=== PATIENT | female | born 1975 | race Caucasian/White ===

== ENCOUNTER 2016-05-27 14:27 | Emergency (ER) | payer SELFPAY ==
--- NOTE | 2016-05-27 15:22 | RAD ---
INDICATION: LEFT wrist pain and forearm pain post fall. COMPARISON: November 30, 2003 radiographs. TECHNIQUE: AP, lateral, and oblique views LEFT wrist. AP and lateral views LEFT forearm. REPORT: Transverse fracture through the distal metaphysis of the radius with approximate one half bone width dorsal displacement and dorsal impaction with resulting mild dorsal tilt of the distal radioarticular surface. Negative for associated fracture of the ulna. The carpus remains aligned with the distal radioarticular surface. Negative for additional more proximal fracture of the radius or ulna. Soft tissue swelling about the distal forearm and wrist most prominent along the volar and radial aspects. Negative for subcutaneous emphysema. IMPRESSION: Dorsally displaced and impacted distal metaphyseal fracture of the radius with resulting loss of the normal volar tilt of the distal radioarticular surface.
[2016-05-27] MEDS ORDERED: oxyCODONE/Acetamin 5/325 MG* TAB PO ONE ×2 (15:31→15:53)
--- NOTE | 2016-05-27 15:31 | ED ---
Upper Extremity Pain - HPI Summary HPI Summary: 40 female presents with complaints of left wrist pain that began just [employer] after experiencing a fall while at work. Patient states she was cleaning a bathroom and the floor was wet causing her to slip while she was walking and fell onto her left side, FOOSH injury. Patient denies pain in left elbow, shoulder and fingers. Denies hitting her head and no LOC. Sensation and skin intact. Full ROM at elbow and shoulder. Pain is sharp, aching and radiates up her left forearm. Denies any PMHx. Has not taken any medication for this injury however she is prescribed to take 20mg oxycotton and 10mg percocet daily for a pinched nerve. - History of Current Complaint Chief Complaint: EDExtremityUpper Stated Complaint: POSSIBLE BROKEN WRIST Time Seen by Provider: 05/27/16 14:45 Hx Obtained From: Patient Hx Last Menstrual Period: 3 WEEKS AGO Mechanism Of Injury: Fall From A Standing Position Onset/Duration: Started Hours Ago, Traumatic, Worse Since Timing: Constant Severity Initially: Moderate Severity Currently: Severe Pain Location: Forearm - LEFT, Wrist Character: Sharp, Aching Aggravating Factor(s): Movement, Lifting, Flexion, Extension, Internal/External Rotation Alleviating Factor(s): Nothing, Rest, Ice Associated Signs & Symptoms: Positive: Swelling, Redness. Negative: Numbness/ Tingling Related History: Dominant Hand Left - Allergies/Home Medications Allergies/Adverse Reactions: Allergies Allergy/AdvReac Type Severity Reaction Status Date / Time Daptomycin Allergy Severe Hives Verified 06/22/15 15:26 Gabapentin Allergy Severe RESPIRATORY Verified 06/22/15 15:26 ILLNESS Prednisone Allergy Severe THROAT Verified 06/22/15 15:30 SWELLING Cephalexin Allergy Intermediate Hives Verified 06/22/15 15:26 Doxycycline Allergy Intermediate Headache Verified 06/22/15 15:26 Vancomycin Allergy Intermediate Hives Verified 06/22/15 15:26 Sulfamethoxazole Allergy Rash Verified 06/22/15 15:26 w/Trimethoprim [From Bactrim] PMH/Surg Hx/FS Hx/Imm Hx Endocrine/Hematology History: Denies: Hx Diabetes, Hx Thyroid Disease Cardiovascular History: Denies: Hx Hypertension Respiratory History: Denies: Hx Asthma, Hx Chronic Obstructive Pulmonary Disease (COPD) GI History: Denies: Hx Ulcer - Surgical History Surgery Procedure, Year, and Place: carpal tunnel. 3 foot surgeries. csection. back surgeries x7 - discectomy, lumbar laminectomy. tubal ligation - then reversal, CERVICAL FUSION 03/15/15 - Immunization History Immunizations Up to Date: Yes Infectious Disease History: No Infectious Disease History: Denies: Hx Hepatitis, Hx Human Immunodeficiency Virus (HIV), Traveled Outside the [place] in Last 30 Days - Family History Known Family History: Positive: Respiratory Disease - COPD in parent - Social History Alcohol Use: None Substance Use Type: Reports: None Smoking Status (MU): Heavy Every Day Tobacco Smoker Type: Cigarettes Amount Used/How Often: 1 pack daily Length of Time of Smoking/Using Tobacco: 20 years Review of Systems Constitutional: Negative Eyes: Negative ENT: Negative Cardiovascular: Negative Respiratory: Negative Gastrointestinal: Negative Genitourinary: Negative Positive: Arthralgia, Myalgia, Decreased ROM, Edema - left wrist Skin: Negative Neurological: Negative Psychological: Normal All Other Systems Reviewed And Are Negative: Yes Physical Exam Triage Information Reviewed: Yes Vital Signs On Initial Exam: Initial Vitals Temp Pulse Resp BP Pulse Ox 97.4 F 83 16 119/67 100 05/27/16 14:33 05/27/16 14:33 05/27/16 14:33 05/27/16 14:33 05/27/16 14:33 Vital Signs Reviewed: Yes Appearance: Positive: Well-Appearing, No Pain Distress - minimal pain distress on exam and during palpation, Well-Nourished Skin: Positive: Warm, Skin Color Reflects Adequate Perfusion, Dry, Other - edema and obvious deformity at left wrist, "dinner fork" appearance, no ecchymosis or erythema noted. skin intact. Head/Face: Positive: Normal Head/Face Inspection Eyes: Positive: Normal, EOMI, Conjunctiva Clear ENT: Positive: Normal ENT inspection, Hearing grossly normal Neck: Positive: Supple, Nontender, No Lymphadenopathy Respiratory/Lung Sounds: Positive: Clear to Auscultation, Breath Sounds Present , Wheezes - throughout, patient does use tobacco. Negative: Decreased Breath Sounds, Rales, Rhonchi Cardiovascular: Positive: Normal, RRR, Pulses are Symmetrical in both Upper and Lower Extremities - 2+ radial pulses, strong. neurovascular intact both upper extremities. sensation and skin intact. Abdomen Description: Positive: Nontender Musculoskeletal: Positive: Limited @, Interruption @ - obvious deformity at left wrist, dorsal. "Dinner fork" appearance. FOOSH. ROM of left elbow, shoulder and fingers intact. Left wrist no ROM due to pain. palmar strength intact. crepitus, edema and step-off also noted posterior left wrist., Abnormal @ - left wrist, Pain @ - left wrist, Edema Left Neurological: Positive: Normal, Sensory/Motor Intact, Alert, Oriented to Person Place, Time, CN Intact II-III, Reflexes Intact, NV Bundle Intact Distally, Normal Gait Psychiatric: Positive: Normal, Affect/Mood Appropriate Procedures - Splinting Location: left forearm Hand-Made Type: plaster Splint: sugar-tong Pre-Proc Neuro Vasc Exam: normal Post-Proc Neuro Vasc Exam: normal - Joint Reduction Joint Reduction Site: wrist (L) Conscious Sedation: No - given ativan, used 2 % lidocaine for hematoma block Reduction Attempts: 1 - Preformed by Dr Aguirre Pre-Procedure NV Exam: Yes Post Joint Reduction Film: joint reduced Diagnostics - Vital Signs Vital Signs Temp Pulse Resp BP Pulse Ox 05/27/16 14:33 97.4 F 83 16 119/67 100 - Laboratory Lab Statement: Any lab studies that have been ordered have been reviewed, and results considered in the medical decision making process. - Radiology left wrist Xray Interpretation: Positive (See Comments) - Dorsally displaced and impacted distal metaphyseal fracture of the radius with resulting loss of the normal volar tilt of the distal radioarticular surface. left forearm Xray Interpretation: Positive (See Comments) - Dorsally displaced and impacted distal metaphyseal fracture of the radius with resulting loss of the normal volar tilt of the distal radioarticular surface. Radiology Interpretation Completed By: Radiologist left rist post-reduction Xray Interpretation: Positive (See Comments) - AGAIN NOTED IS AN ANGULATED FRACTURE OF THE DISTAL RADIAL METAPHYSIS Radiology Interpretation Completed By: Radiologist Re-Evaluation - Re-Evaluation First Eval Re-Evaluation Time: 16:35 Change: Improved - was feeling some relief afer 10 of percocet however states she usually takes this daily and she takes oxycotin around 6pm daily Second Eval Re-Evaluation Time: 19:00 Change: Improved - post-reduction Comment: feels better after pain medication, post-reduction and splinting Course/Dx - Course Course Of Treatment: patient was given pain management. x-ray obtained and significant for a displaced impacted distal radius fracture. was instructed by Dr Sorensen orthopedics to do a hematoma block and attempt reduction. Dr Sorensen preferred to speak with Dr Aguirre who also preformed reduction. Given Ativan before procedure. Went well without complication, using 1% lidocaine and using sterile technique. Post-reduction x-ray obtained. Splinted left forearm in sugar tong. told to continue pain medication that she takes at home for this pain and follow up with orthopedics in the next couple of days for further treatment. - Diagnoses Differential Diagnosis/HQI/PQRI: Positive: Contusion, Fracture (Closed), Strain , Sprain Provider Diagnoses: Distal radius fracture, left - Physician Notifications Discussed Care Of Patient With: Dr Aguirre spoke with Dr Sorensen due to Dr Sorensen's preference Time Discussed With Above Provider: 15:55 Discharge - Discharge Plan Condition: Stable Disposition: HOME Patient Education Materials: Wrist Fracture in Adults (ED) Forms: *Work Release Referrals: Daniel Sorensen MD [Medical Doctor] - Chester Banuelos MD [Primary Care Provider] - Additional Instructions: Take current pain medications daily as prescribed to help with pain management. Ice, elevate and rest arm. Refrain from strenuous physical activity with your left arm. If splint feels as though it has become to tight, you have lost circulation in your fingers, experience numbness/tingling, cold finger please return immediately. Follow up with orthopedics for further treatment and evaluation, call to make an appointment as they are expecting you.
[2016-05-27] MEDS ORDERED: LORazepam INJ* 2 MG/ML 1 ML VIAL IV PUSH ONE (16:54)
[2016-05-27] MEDS ORDERED: oxyCODONE SR TAB(*) 20 MG TAB.SR PO ONE (17:13)
--- NOTE | 2016-05-27 18:51 | RAD ---
HISTORY: Status post closed reduction COMPARISONS: May 27, 2016 at 3:06 PM VIEWS: 3, Frontal, lateral, and oblique views of the left wrist performed in a cast which appears fine bone detail FINDINGS: BONE DENSITY: Normal. BONES: Again noted is an angulated fracture of the distal radial metaphysis. There is persistent but somewhat decreased in attenuation compared to the previous examination. JOINTS: There is no arthropathy. ALIGNMENT: There is no dislocation. SOFT TISSUES: Unremarkable. OTHER FINDINGS: None. IMPRESSION: AGAIN NOTED IS AN ANGULATED FRACTURE OF THE DISTAL RADIAL METAPHYSIS
[2016-05-27 19:23] VITALS: BP 124/84
== END 2016-05-27 19:26 | disposition home or self-care (01) ==
LOC: ED 14:27
DX: S52.502A Unspecified fracture of the lower end of left radius, initial encounter for closed fracture (principal); M25.532 Pain in left wrist; R60.0 Localized edema; F17.210 Nicotine dependence, cigarettes, uncomplicated; W19.XXXA Unspecified fall, initial encounter; Y93.89 Activity, other specified; Y92.9 Unspecified place or not applicable
CPT/HCPCS: 96374; 99283; A9270-GY; J2060

== ENCOUNTER 2016-06-08 12:10 | Emergency (ER) | payer OTHER ==
[2016-06-08 14:03] VITALS: BP 154/84
--- NOTE | 2016-06-08 14:29 | UC ---
Lower Extremity/Ankle HPI - HPI Summary HPI Summary: ORIF LEFT WRIST 6 DAYS AGO UNDER GENERAL ANESTHESIA. ARM WAS PREPPED WITH CHLORHEXIDINE AND THE NEXT DAY PT DEVELOPED LEFT ARM SWELLING AND FLAKING, ERYTHEMATOUS RASH TO ARM AND LEFT ANTERIOR CHEST. PT ALSO NOTICED BILATERAL LOWER EXTREMITY SWELLING. FEELS TIGHT. PT DOES NOT HAVE LEG EDEMA AT BASELINE. DENIES FEVER, SOB, CP, PALPITATIONS. NOT NOTICEABLY BETTER WITH LEG ELEVATION. NO RASH ON LEGS. - History of Current Complaint Chief Complaint: UCLowerExtremity Stated Complaint: ALLERGIC REACTION Time Seen by Provider: 06/08/16 14:04 Hx Obtained From: Patient Hx Last Menstrual Period: 05/17/16 Onset/Duration: Gradual Onset, Lasting Days, Still Present Severity Initially: Moderate Severity Currently: Moderate Pain Intensity: 5 Pain Scale Used: 0-10 Numeric Aggravating Factor(s): Standing, Ambulation Alleviating Factor(s): Rest Able to Bear Weight: Yes - Allergies/Home Medications Allergies/Adverse Reactions: Allergies Allergy/AdvReac Type Severity Reaction Status Date / Time Daptomycin Allergy Severe Hives Verified 06/22/15 15:26 Gabapentin Allergy Severe RESPIRATORY Verified 06/22/15 15:26 ILLNESS Prednisone Allergy Severe THROAT Verified 06/22/15 15:30 SWELLING Cephalexin Allergy Intermediate Hives Verified 06/22/15 15:26 Doxycycline Allergy Intermediate Headache Verified 06/22/15 15:26 Vancomycin Allergy Intermediate Hives Verified 06/22/15 15:26 Sulfamethoxazole Allergy Rash Verified 06/22/15 15:26 w/Trimethoprim [From Bactrim] PMH/Surg Hx/FS Hx/Imm Hx Previously Healthy: Yes Endocrine History Of: Denies: Diabetes, Thyroid Disease Cardiovascular History Of: Denies: Cardiac Disorders, Hypertension Respiratory History Of: Denies: COPD, Asthma GI/ History Of: Denies: Ulcer - Surgical History Surgical History: Yes Surgery Procedure, Year, and Place: carpal tunnel. 3 foot surgeries. csection. back surgeries x7 - discectomy, lumbar laminectomy. tubal ligation - then reversal, CERVICAL FUSION 03/15/15. LEFT WRIST SURGERY 06/16 - Family History Known Family History: Positive: Respiratory Disease - COPD in parent - Social History Alcohol Use: None Substance Use Type: None Smoking Status (MU): Heavy Every Day Tobacco Smoker Type: Cigarettes Amount Used/How Often: 1 pack daily Length of Time of Smoking/Using Tobacco: 20 years Household Exposure Type: Cigarettes Review of Systems Constitutional: Negative Skin: Rash Respiratory: Negative Cardiovascular: Negative Gastrointestinal: Negative Musculoskeletal: Edema All Other Systems Reviewed And Are Negative: Yes Physical Exam Triage Information Reviewed: Yes Appearance: Well-Appearing, No Pain Distress, Well-Nourished Vital Signs: Initial Vital Signs Temp 98.2 F 06/08/16 14:00 Pulse 96 06/08/16 14:00 Resp 16 06/08/16 14:00 BP 154/84 06/08/16 14:00 Pulse Ox 100 06/08/16 14:00 Vital Signs Reviewed: Yes Eyes: Positive: Conjunctiva Clear ENT: Positive: Hearing grossly normal Neck: Positive: Supple Respiratory Exam: Normal Cardiovascular Exam: Normal Abdomen Description: Positive: Soft Musculoskeletal: Positive: ROM Intact, Edema @ - 2+ PITTING ANKLE EDEMA TO MID BREWSTER BILATERALLY Neurological: Positive: Alert Psychological: Positive: Age Appropriate Behavior Skin: Positive: rashes - CRUSTED, FLAKING RASH LUE AND LEFT ANTERIOR CHEST WITH MILD EXCORIATION Lower Extremity Course/Dx - Differential Dx/Diagnosis Provider Diagnoses: 1. BILATERAL LOWER EXTREMITY EDEMA. 2. ALLERGIC DERMATITIS LEFT UPPER EXTREMITY Discharge - Discharge Plan Condition: Stable Disposition: HOME Prescriptions: predniSONE TAB* [Deltasone TAB*] 40 mg PO DAILY #10 tab Patient Education Materials: Leg Edema (ED) Referrals: Chester Banuelos MD [Primary Care Provider] - 3 Days Additional Instructions: CLEAR ALLERGIC REACTION FROM CHLORHEXIDINE ON LEFT ARM. IT IS POSSIBLE THAT THIS HAS CAUSED A SYSTEMIC ALLERGIC REACTION THAT IS MANIFESTING LEG SWELLING. ALSO CONSIDER THAT THIS IS A SEPARATE CONDITION POSSIBLY STEMMING FROM MEDS RECEIVED FOR YOUR SURGERY/ANESTHESIA OR SOME OTHER RELATED CONDITION. WE ARE CHECKING YOUR BLOOD COUNT AND METABOLIC PANEL TODAY. KEEP YOUR LEGS ELEVATED WHEN SEATED. TAKE OTC ANTIHISTAMINE DAILY (CLARITIN (LORATADINE), ZYRTEC (CETIRIZINE) OR PEBBLES (FEXOFENADINE) IN THE MORNING, BENADRYL AT NIGHT) IF YOU ARE NOT NOTICING CLEAR IMPROVEMENT OVER THE NEXT FEW DAYS OR IF YOU DEVELOP CHEST PAIN, SHORTNESS OF BREATH, FEVER, WORSENING SWELLING, CALF TENDERNESS OR ANY OTHER CONCERNING SYMPTOMS GO TO THE ER WITHOUT FAIL.
[2016-06-09 11:25] LABS: Hematocrit 39 % (35-47); Hemoglobin 13.1 g/dl (12.0-16.0); Mean Corpuscular HGB Conc 33 g/dl (31-36); Mean Corpuscular Hemoglobin 31 pg (27-31); Mean Corpuscular Volume 92 fL (80-97); Mean Platelet Volume 9 um3 (7.4-10.4); Red Blood Count 4.28 10^6/ul (4.0-5.4); Red Cell Distribution Width 13 % (10.5-15); White Blood Count 13.5 10^3/ul (3.5-10.8)
[2016-06-09 11:36] LABS: Albumin 3.8 g/dL (3.2-5.2); BUN/Creatinine Ratio 21.9 (8-20); Calcium 9.8 mg/dL (8.6-10.3); EGFR African American 130.9 (>60); EGFR Non-African American 101.8 (>60); Globulin 2.4 g/dL (2-4); Potassium 4.3 mmol/L (3.5-5.0); Total Bilirubin 0.3 mg/dL (0.2-1.0); Total Protein 6.2 g/dL (6.4-8.9)
== END 2016-06-08 14:58 | disposition home or self-care (01) ==
LOC: UCEAST 12:10
DX: L23.9 Allergic contact dermatitis, unspecified cause (principal); R60.0 Localized edema; F17.210 Nicotine dependence, cigarettes, uncomplicated; Z88.3 Allergy status to other anti-infective agents
CPT/HCPCS: 36415; 80053; 85025; 99212; G0463

== ENCOUNTER 2017-03-17 17:06 | Emergency (ER) | payer OTHER ==
[2017-03-17] MEDS ORDERED: Albuterol/Ipratropium NEB.SOL* Albuterol 2.5 MG/Ipratropium 0.5 MG 3 ML INH ONE ×2 (17:31)
--- NOTE | 2017-03-17 17:42 | UC ---
Dagoberto Ellis Stephanie, scribed for Shanice Ha MD on 03/17/17 at 1740 . Respiratory Complaint HPI - HPI Summary HPI Summary: The pt is a 41 y/o F presenting to with wheezing that began on 03/13/17. Symptoms include nasal congestion, cough, sore throat, SOB, rhinorrhea and chills. Pt with persistent, non productive cough. Pt denies cp, abd pain. Denies n/v/d. No fevers, chills, rash. Pt states pain in ribs. Pt without sick contact. Pt with h/o bronchitis. + wheezing. + cough without production. The pt works at [employer]. Pt's medications reviewed this visit. - History of Current Complaint Chief Complaint: EDRespiratoryDistress Stated Complaint: COLD,COUGH,DIFFICULTY BREATHING Time Seen by Provider: 03/17/17 17:25 Hx Obtained From: Patient Hx Last Menstrual Period: 03/07/2017 Onset/Duration: Lasting Days - 4, Still Present Timing: Constant Severity Initially: Mild Severity Currently: Moderate Character: Cough: Productive Aggravating Factors: Nothing Alleviating Factors: Nothing Associated Signs And Symptoms: Positive: Chills, Wheezing, Nasal Congestion. Negative: Fever - Allergies/Home Medications Allergies/Adverse Reactions: Allergies Allergy/AdvReac Type Severity Reaction Status Date / Time Daptomycin Allergy Severe Hives Verified 03/17/17 17:33 Gabapentin Allergy Severe RESPIRATORY Verified 03/17/17 17:33 ILLNESS Prednisone Allergy Severe THROAT Verified 03/17/17 17:33 SWELLING Cephalexin Allergy Intermediate Hives Verified 03/17/17 17:33 Doxycycline Allergy Intermediate Headache Verified 03/17/17 17:33 Vancomycin Allergy Intermediate Hives Verified 03/17/17 17:33 Sulfamethoxazole Allergy Rash Verified 03/17/17 17:33 w/Trimethoprim [From Bactrim] PMH/Surg Hx/FS Hx/Imm Hx Previously Healthy: Yes Respiratory History: Bronchitis - Surgical History Surgical History: Yes Surgery Procedure, Year, and Place: carpal tunnel. 3 foot surgeries. csection. back surgeries x7 - discectomy, lumbar laminectomy. tubal ligation - then reversal, CERVICAL FUSION 03/15/15. LEFT WRIST SURGERY 06/16 - Family History Known Family History: Positive: Respiratory Disease - COPD in parent, emphysema - Social History Occupation: Employed Part-time Lives: Alone Alcohol Use: None Substance Use Type: None Smoking Status (MU): Heavy Every Day Tobacco Smoker Type: Cigarettes Amount Used/How Often: 1 pack daily Length of Time of Smoking/Using Tobacco: 20 years Household Exposure Type: Cigarettes Review of Systems Constitutional: Chills, Fatigue Skin: Negative Eyes: Negative ENT: Sore Throat, Nasal Discharge, Sinus Congestion Respiratory: Shortness Of Breath, Cough All Other Systems Reviewed And Are Negative: Yes Physical Exam Triage Information Reviewed: Yes Appearance: Other: - + audible wheeze, coarse cough Vital Signs: Initial Vital Signs Temp 99.0 F 03/17/17 17:16 Pulse 115 03/17/17 17:16 Resp 24 03/17/17 17:16 BP 116/79 03/17/17 17:16 Pulse Ox 89 03/17/17 17:16 Vital Signs Reviewed: Yes Eye Exam: Normal Eyes: Positive: Conjunctiva Clear ENT Exam: Normal ENT: Positive: Normal ENT inspection, Hearing grossly normal, Pharynx normal, Nasal congestion, Other - turbinates inflammed and boggy + PND no exudate, no erythema uvula midline Dental Exam: Normal Neck exam: Normal Neck: Positive: Supple, Nontender, No Lymphadenopathy Respiratory Exam: Normal Respiratory: Positive: Chest non-tender, Wheezing, Other: - + coarse cough + diffuse wheeze no retractions Cardiovascular Exam: Normal Cardiovascular: Positive: RRR, No Murmur, Brisk Capillary Refill, Other: - borderline tachy - no m/r CBT < 2 sec Abdominal Exam: Normal Abdomen Description: Positive: Nontender, No Organomegaly, Soft Bowel Sounds: Positive: Present Musculoskeletal Exam: Normal Musculoskeletal: Positive: Strength Intact Neurological Exam: Normal Neurological: Positive: Alert Psychological Exam: Normal Skin Exam: Normal UC Diagnostic Evaluation - Laboratory O2 Sat by Pulse Oximetry: 89 - Radiology Xray Interpretation: No Acute Changes Radiology Interpretation Completed By: Radiologist - No radiographic evidence of acute cardiopulmonary disease. Re-Evaluation - Re-Evaluation First Eval Re-Evaluation Time: 18:27 Change: Improved - Wheezing resolved. Pt states that she feels better. Strep test is negative. Flu swab is negative. Awaiting CXR pt receiving second neb close reassessment Second Eval Change: Improved - Pt states feeling better. I walked with patient to complete ambulatory sats. Walking sat 96, HR 115 - pt states feels better, resting stat 94, HR 102 Wheezing nearly resolved. d/w pt at length - abx - albuterol MDI with spacer Q4hr hydrate motrin/apap return precautions closely reviewed secretion precautions reviewed Pt comfortable and in agreement with plan Respiratory Course/Dx - Course Course Of Treatment: Pt presents with coarse cough, diffuse wheeze progressive x 3-4 days. PT with coarse cough, low sat at triage. Will check flu, duoneb, strep. cxr. close reassessment. pt with allergy to prednisone - causes facial , throat swelling - Differential Dx/Diagnosis Provider Diagnoses: bronchitis. wheeze Discharge - Discharge Plan Condition: Improved Disposition: HOME Prescriptions: Albuterol HFA INHALER* [Ventolin HFA Inhaler*] 1 puff INH Q4H PRN #1 mdi PRN Reason: wheeze Azithromycin TAB* [Zithromax TAB (Z-DORIE) 250 mg #6 tabs] 2 tab PO .TODAY, THEN 1 DAILY #1 dorie Spacer/Aerosol-Holding Chamber [Aerochamber Mv] 1 mis PO Q4HR #1 mis Patient Education Materials: Acute Bronchitis (ED), Wheezing (ED) Forms: *Gen. Provider Communication, *Work Release Referrals: Chester Banuelos MD [Primary Care Provider] - Additional Instructions: - STay well hydrated. Drink plenty of non-alcoholic, non-caffinated beverages - It is recommended you take over the counter decongestant - take antibiotics as prescribed until gone - use inhaler - 2 puffs every 4 hours today and tomorrow, then every 4 hours as needed - get plenty of restful sleep - if you again develop shortness of breath, difficulty breathing, or ANY other concerns it is recommended you contact 911 or go to the emergency department -- After you have been on antibiotics for 2 days - change your toothbrush and your pillowcase. These infections are spread by secretions - do NOT share eating or drinking utensils - clean items you share with other people such as cell phones, computer mouse, TV remote, computer tablets, etc - Contact your doctor to schedule a follow-up appointment The documentation as recorded by the Dagoberto shaw Stephanie accurately reflects the service I personally performed and the decisions made by me, Shanice Ha MD.
--- NOTE | 2017-03-17 18:30 | RAD ---
INDICATION: Cough, congestion and wheezing COMPARISON: Chest x-ray dated June 22, 2015 TECHNIQUE: PA and lateral views of the chest were obtained. FINDINGS: The heart and mediastinum are normal in size and contour. The lungs are grossly clear. There is no evidence of large pleural effusion. Visualized bones are normal for the patient's age. There is no radiographic evidence of free air beneath the diaphragm IMPRESSION: No radiographic evidence of acute cardiopulmonary disease.
[2017-03-17 19:57] VITALS: BP 105/78
== END 2017-03-17 19:56 | disposition home or self-care (01) ==
LOC: UCEAST 17:06
DX: J40 Bronchitis, not specified as acute or chronic (principal); R06.2 Wheezing; R09.81 Nasal congestion; R68.83 Chills (without fever); Z88.1 Allergy status to other antibiotic agents; Z88.2 Allergy status to sulfonamides; F17.210 Nicotine dependence, cigarettes, uncomplicated
CPT/HCPCS: 71046; 87502; 87651; 99213; A9270-GY; G0463

== ENCOUNTER 2018-06-04 15:06 | Emergency (ER) | payer OTHER ==
--- NOTE | 2018-06-04 15:11 | UC ---
Respiratory Complaint HPI - HPI Summary HPI Summary: 42 yo female presents with cough and chest congestion for the last 4 months. 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 She last saw her PCP last week and was placed on anbx and prednisone, which she finished and her symptoms improved a little while on these medications - but returned when she stopped. She continues to smoke heavily daily. She has not been taking any OTC medications. She does feel short of breath at times. Denies fever, chills, sore throat, chest pain, abdominal pain. - History of Current Complaint Stated Complaint: CHEST CONGESTION, AND COUGH Time Seen by Provider: 06/04/18 15:11 Hx Obtained From: Patient Hx Last Menstrual Period: 03/07/2017 Severity Initially: Mild Severity Currently: Mild Pain Intensity: 3 Pain Scale Used: 0-10 Numeric Character: Cough: Nonproductive - Allergies/Home Medications Allergies/Adverse Reactions: Allergies Allergy/AdvReac Type Severity Reaction Status Date / Time cephalexin Allergy Hives Verified 06/04/18 15:19 daptomycin Allergy Hives Verified 06/04/18 15:19 doxycycline Allergy Headache Verified 06/04/18 15:19 gabapentin Allergy Difficulty Verified 06/04/18 15:19 Breathing phenol [From Chloraseptic] Allergy Blisters Verified 06/04/18 15:20 prednisone Allergy Swelling Verified 06/04/18 15:19 Of Face,Lips,& Throat sulfamethoxazole Allergy Rash Verified 06/04/18 15:19 [From Bactrim] trimethoprim [From Bactrim] Allergy Rash Verified 06/04/18 15:19 Home Medications: Home Medications Aspirin 81 mg PO DAILY 06/04/18 [History Confirmed 06/04/18] Calcium Carbonate [Calcium] 1 tab PO DAILY 06/04/18 [History Confirmed 06/04/18] Cholecalciferol (Vitamin D3) [Vitamin D3] 1,000 unit PO DAILY 06/04/18 [History Confirmed 06/04/18] Fluticasone/Vilanterol [Breo Ellipta 200-25 Mcg INH] 1 puff INH DAILY 06/04/18 [ History Confirmed 06/04/18] hydroCHLOROthiazide [Hydrochlorothiazide] 25 mg PO DAILY 06/04/18 [History Confirmed 06/04/18] predniSONE [Prednisone 5 MG TAB] 10 mg PO DAILY 06/04/18 [History Confirmed 07/18] PMH/Surg Hx/FS Hx/Imm Hx - Additional Past Medical History Additional PMH: Chronic pain Respiratory History: Asthma - Surgical History Surgical History: Yes Surgery Procedure, Year, and Place: carpal tunnel. 3 foot surgeries. csection. back surgeries x7 - discectomy, lumbar laminectomy. tubal ligation - then reversal, CERVICAL FUSION 03/15/15. LEFT WRIST SURGERY 06/16 - Family History Known Family History: Positive: Respiratory Disease - COPD in parent, emphysema - Social History Occupation: Employed Full-time Lives: With Family Alcohol Use: None Substance Use Type: None Smoking Status (MU): Heavy Every Day Tobacco Smoker Type: Cigarettes Amount Used/How Often: 1 pack daily Length of Time of Smoking/Using Tobacco: 20 years Household Exposure Type: Cigarettes Review of Systems All Other Systems Reviewed And Are Negative: Yes Constitutional: Positive: Negative Skin: Positive: Negative Eyes: Positive: Negative ENT: Positive: Nasal Discharge Respiratory: Positive: Cough Cardiovascular: Positive: Negative Gastrointestinal: Positive: Negative Physical Exam - Summary Physical Exam Summary: GENERAL: NAD. WDWN. No pain distress. SKIN: No rashes, sores, lesions, or open wounds. HEENT: Head: AT/NC Eyes: EOM intact. Conjunctiva clear without inflammation or discharge. Ears: Hearing grossly normal. TMs intact, no bulging, erythema, or edema. Nose: Nasal mucosa pink and moist. NTTP maxillary and frontal sinus. Throat: Posterior oropharynx without exudates, erythema, or tonsillar enlargement. Uvula midline. NECK: Supple. Nontender. No lymphadenopathy. CHEST: Mild wheezing throughout. No r/r. No accessory muscle use. Breathing comfortably and in no distress. CV: RRR. Without m/r/g. Pulses intact. Cap refill <2seconds NEURO: Alert. PSYCH: Age appropriate behavior. Triage Information Reviewed: Yes Vital Signs: Vital Signs: Temp Pulse Resp BP Pulse Ox 97.7 F 88 18 128/78 97 06/04/18 15:12 06/04/18 15:12 06/04/18 15:12 06/04/18 15:12 06/04/18 15:12 Vital Signs Reviewed: Yes Respiratory Course/Dx - Course Course Of Treatment: CXR: IMPRESSION: #. Stigmata of obstructive lung disease. No acute pulmonary or cardiac process evident. Duoneb: Mild improvement s/p. Feels easier to take a deep breath. I had a long discussion with the patient that her symptoms are very likely due to chronic bronchitis/COPD and not from an infection. She is adamant that she needs "higher doses of antibiotics". I discussed with her that antibiotics are not indicated for her condition and she has tried and failed 4 different antibiotics recently. I recommended cutting back on smoking as much as possible. Will rx for atrovent and strongly encouraged her to f/u with her PCP and/or pulmonology for further evaluation of her suspected COPD/chronic bronchitis. - Differential Dx/Diagnosis Provider Diagnosis: Chronic bronchitis Discharge - Sign-Out/Discharge Documenting (check all that apply): Patient Departure All imaging exams completed and their final reports reviewed: No Studies - Discharge Plan Condition: Stable Disposition: HOME Prescriptions: Ipratropium HFA INHALER(NF) [Atrovent Hfa Inhaler(NF)] 1 puff INH Q6H #1 mdi Patient Education Materials: Chronic Bronchitis (ED) Referrals: Chester Banuelos MD [Primary Care Provider] - Arlene Mcqueen MD [Medical Doctor] - As Soon As Possible Additional Instructions: If you develop a fever, shortness of breath, chest pain, new or worsening symptoms - please call your PCP or go to the ED. Your cough and bronchitis do not appear to be due to an infectious cause. I suspect you are having chronic bronchitis and lung issues due to smoking and it would be beneficial to cut back as much as possible. I highly recommend that you schedule an appointment with a weigh boss (below ) for further evaluation and treatment of your continued cough and lung issues. - Billing Disposition and Condition Condition: STABLE Disposition: Home
--- OUTSIDE RECORDS SUMMARY | 2018-06-04 15:12 | XMS REPORT | Continuity of Care Document ---
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 Chester Banuelos MD Primary Care Physician Unavailable Payers Date Identification Numbers Payment Provider Subscriber Effective: 2012 Policy Number: [id number] [employer] Jacqui [employer] Number: [id number] [address] PayID: [id number] [place] [address] Advance Directives Description No Information Available Problems Description No Information Family History Description No Information Available Social History Type Date Description Comments Sex Unknown Allergies, Adverse Reactions, Alerts Date Description Reaction Status Severity Comments 05/28/2018 Vancomycin Active 05/28/2018 Daptomycin Active 05/28/2018 Bactrim Active 05/28/2018 Lyrica Active 05/28/2018 Gabapentin Active 05/28/2018 Morphine Active Medications Medication Date Status Form Strength Qnty SIG Indications Ordering Provider Doxycycline / Active Tablets 100mg Unknown Hyclate 0000 Prednisone / Active TBPK 10mg (48) as Unknown 0000 directed Albuterol / Active Aerosol 108(90Base inhale 2 Unknown Sulfate HFA 0000 ) mcg/Act puffs every 4 hours as needed Calcium 600-D / Active Tablets 600-400mg- 1 by mouth Unknown 0000 Unit twice a day Iron / Active Unknown 0000 Aspirin 81 00/ Active Tablets DR 81mg Unknown 0000 Celebrex / Active Unknown 0000 Oxycontin / Active Tab ER 12H 20mg take one Unknown 0000 Abuse-Det tablet by mouth every 12 hours - maximum daily dose of 2 tablets Percocet / Active Tablets 10-325mg 1-2 by Unknown 0000 mouth every 6 hours as needed for pain Albuterol / Hx Nebulizer (2.5mg/3ML 1 vial Unknown Sulfate 0000 - ) 0.083% every 4h 05/28/ as needed 2019 Immunizations Description No Information Available Vital Signs Description No Information Available Results Description No Information Available Procedures Description No Information Available Encounters Description No Information Available Plan of Treatment No Information Available
--- OUTSIDE RECORDS SUMMARY | 2018-06-04 15:12 | XMS REPORT | Continuity of Care Document ---
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 Chester Banuelos MD Primary Care Physician Unavailable Payers Date Identification Numbers Payment Provider Subscriber Effective: 2012 Policy Number: [id number] [employer] [employer] Group Number: [id number] [address] PayID: [id number] [place] [address] Advance Directives Description No Information Available Problems Date Description Provider Status Onset: 05/28/2018 Uncomplicated severe persistent Dontae Okeefe MD Active asthma Onset: 05/28/2018 Allergic rhinitis Dontae Okeefe MD Active Onset: 05/28/2018 Allergic rhinitis due to pollen Dontae Okeefe MD Active Family History Description No Information Available Social History Type Date Description Comments Sex Unknown Tobacco Use Start: Unknown Patient was a smoker, current status is unknown Smoking Status Reviewed: 05/28/18 Patient was a smoker, current status is unknown Allergies, Adverse Reactions, Alerts Date Description Reaction Status Severity Comments 05/28/2018 Vancomycin Active 05/28/2018 Daptomycin Active 05/28/2018 Bactrim Active 05/28/2018 Lyrica Active 05/28/2018 Gabapentin Active 05/28/2018 Morphine Active Medications Medication Date Status Form Strength Qnty SIG Indications Ordering Provider Prednisone 05/28/ Active Tablets 1mg 55tab as per J30.1 Dontae Okeefe MD Breo Ellipta 05/28/ Active Aerosol 200-25mcg/ 60uni inhale J30.1 [id number] Inh ts one puff Leidy Okeefe MD once a day Proair HFA 05/28/ Active Aerosol 108(90Base 8.500 2 puffs J30.oph2018 ) mcg/Act gm every 4 Leidy Okeefe MD as needed Singulair 05/28/ Active Tablets 10mg 30tab 10mg by J30.1 Christopher 2019 s mouth Leidy Okeefe MD daily at bedtime Xyzal Allergy 05/28/ Active Tablets [facility] 30tab [facility] (5 Leidy Okeefe MD mg) by oral route once daily as needed Doxycycline / Active Tablets 100mg Unknown Hyclate 0000 Prednisone / Active TBPK 10mg (48) as Unknown 0000 directed Albuterol / Active Aerosol 108(90Base inhale 2 Unknown Sulfate HFA 0000 ) mcg/Act puffs every 4 hours as needed Calcium 600-D / Active Tablets 600-400mg- 1 by Unknown 0000 Unit mouth twice a day Iron / Active Unknown 0000 Aspirin 81 / Active Tablets DR 81mg Unknown 0000 Celebrex [...] Vital Signs Description No Information Available Results Test Date Facility Test Result H/L Range Note .CBC Auto Diff 05/28/2018 [facility]Other <pending> [address] [place] [address] [phone] Laboratory test 05/28/2018 [facility] .Total IgE <pending> finding [address] [place] [address] [phone] Order 05/28/2018 [facility] Inhaler <pending> Training-Patient Demonstrates Competency Nitric Oxide <pending> PFT Supplies <pending> PFT With Bronchodilator <pending> Skin Test Seasonal and Environmental <pending> Procedures Date Code Description Status 05/28/2018 00484 Nitric Oxide Gas Determination Completed 05/28/2018 87217 Allergy Tests Percutaneous W/ Allergenic Extracts Completed 05/28/2018 02022 Demonstration/Eval,Of Patient Utilization Of Completed Aerosol,Nebulizer 05/28/2018 51059 Bronchodilation Responsiveness Spirometry Pre/Post Completed Bronchodil Adm Encounters Description No Information Available Plan of Treatment 05/28/2018 - Dontae Okeefe MDJ30.1 Allergic rhinitis due to pollenNew Medication:Prednisone 1 mg - as per taperBreo Ellipta 200-25 mcg/Inh - inhale one puff once a dayProair HFA 108(90 Base) mcg/Act - 2 puffs every 4 as neededSingulair 10 mg - 10mg by mouth daily at bedtimeXyzal Allergy 24HR 5 mg - take 1 tablet (5 mg) by oral route once daily as [id number] Other allergic [id number] Severe persistent asthma, uncomplicated
[2018-06-04 15:17] VITALS: BP 128/78
[2018-06-04] MEDS ORDERED: Albuterol/Ipratropium NEB.SOL* Albuterol 2.5 MG/Ipratropium 0.5 MG 3 ML INH ONE (15:29)
== END 2018-06-04 16:37 | disposition home or self-care (01) ==
LOC: UCEAST 15:06
DX: J42 Unspecified chronic bronchitis (principal); J45.909 Unspecified asthma, uncomplicated; F17.210 Nicotine dependence, cigarettes, uncomplicated; Z88.1 Allergy status to other antibiotic agents; Z88.8 Allergy status to other drugs, medicaments and biological substances; Z88.2 Allergy status to sulfonamides; Z79.82 Long term (current) use of aspirin; Z82.5 Family history of asthma and other chronic lower respiratory diseases
CPT/HCPCS: 71046; 99212; A9270-GY; G0463

== ENCOUNTER 2018-06-27 21:29 | Emergency (ER) | payer OTHER ==
[2018-06-27] MEDS ORDERED: Nystatin SUSPENSION* 100000 UNITS/ML 5 ML UDC PO ONE (21:41)
--- NOTE | 2018-06-27 21:46 | UC ---
Throat Pain/Nasal Cornel HPI - HPI Summary HPI Summary: Patient states she was recently on medication and now has a really sore throat with white spots. no fever. - History of Current Complaint Stated Complaint: SORE THROAT, AND SORES IN MOUTH Time Seen by Provider: 06/27/18 21:41 Hx Obtained From: Patient Hx Last Menstrual Period: 03/07/2017 ?: No Onset/Duration: Sudden Onset, Lasting Days Severity: Severe Associated Signs & Symptoms: Positive: Dysphagia - Allergies/Home Medications Allergies/Adverse Reactions: Allergies Allergy/AdvReac Type Severity Reaction Status Date / Time prednisone Allergy Mild Swelling Verified 06/27/18 21:41 Of Face,Lips,& Throat cephalexin Allergy Hives Verified 06/27/18 21:41 daptomycin Allergy Hives Verified 06/27/18 21:41 doxycycline Allergy Headache Verified 06/27/18 21:41 gabapentin Allergy Difficulty Verified 06/27/18 21:41 Breathing phenol [From Chloraseptic] Allergy Blisters Verified 06/27/18 21:41 sulfamethoxazole Allergy Rash Verified 06/27/18 21:41 [From Bactrim] trimethoprim [From Bactrim] Allergy Rash Verified 06/27/18 21:41 vancomycin Allergy Hives Verified 06/27/18 21:41 PMH/Surg Hx/FS Hx/Imm Hx Previously Healthy: Yes - Surgical History Surgical History: Yes Surgery Procedure, Year, and Place: carpal tunnel. 3 foot surgeries. csection. back surgeries x7 - discectomy, lumbar laminectomy. tubal ligation - then reversal, CERVICAL FUSION 03/15/15. LEFT WRIST SURGERY 06/16 - Family History Known Family History: Positive: Respiratory Disease - COPD in parent, emphysema - Social History Alcohol Use: None Substance Use Type: None Smoking Status (MU): Heavy Every Day Tobacco Smoker Type: Cigarettes Amount Used/How Often: 1 pack daily Length of Time of Smoking/Using Tobacco: 20 years Household Exposure Type: Cigarettes Review of Systems All Other Systems Reviewed And Are Negative: Yes ENT: Positive: Sore Throat Respiratory: Positive: Cough Is Patient Immunocompromised?: No Physical Exam Triage Information Reviewed: Yes Appearance: Well-Nourished, Ill-Appearing, Pain Distress Vital Signs Reviewed: Yes Eye Exam: Normal ENT: Positive: Pharyngeal erythema - with patchy whitle spots on oral mucosa, TMs normal Dental Exam: Normal Neck exam: Normal Respiratory Exam: Normal Respiratory: Positive: Chest non-tender, Lungs clear, Normal breath sounds Cardiovascular Exam: Normal Cardiovascular: Positive: RRR, No Murmur, Pulses Normal Abdominal Exam: Normal Bowel Sounds: Positive: Present Musculoskeletal Exam: Normal Neurological Exam: Normal Psychological Exam: Normal Skin Exam: Normal Throat Pain/Nasal Course/Dx - Course Course Of Treatment: hx obtained, exam performed, meds reviewed, treated for oral thrush - Differential Dx/Diagnosis Differential Diagnosis/HQI/PQRI: Laryngitis, Otitis Media, Pharyngitis, Sinusitis, URI Provider Diagnosis: Thrush, oral Discharge - Sign-Out/Discharge Documenting (check all that apply): Patient Departure All imaging exams completed and their final reports reviewed: No Studies - Discharge Plan Condition: Stable Disposition: HOME Prescriptions: Nystatin SUSPENSION* 500,000 units PO QID #100 [facility] [place] Patient Education Materials: Oral Candidiasis (ED) Referrals: Chester Banuelos MD [Primary Care Provider] - Additional Instructions: 1. take the medication as prescribed. 2. When using your inhalers alway rinse your outh with water afterwards as the antibiotic and steroid use can cause fungal infections. 3. Follow up with your PCP if not improving in the next few days - Billing Disposition and Condition Condition: STABLE Disposition: Home
[2018-06-27 21:50] VITALS: BP 122/83
[2018-06-27] MEDS ORDERED: Nystatin SUSPENSION* 100000 UNITS/ML 5 ML UDC ONE (21:52)
== END 2018-06-27 22:00 | disposition home or self-care (01) ==
LOC: UCEAST 21:29
DX: B37.0 Candidal stomatitis (principal); F17.210 Nicotine dependence, cigarettes, uncomplicated; Z88.8 Allergy status to other drugs, medicaments and biological substances; Z88.1 Allergy status to other antibiotic agents; Z88.2 Allergy status to sulfonamides
CPT/HCPCS: 99212; A9270-GY; G0463

== ENCOUNTER 2023-04-23 19:11 | Inpatient (IN) ==
[2023-04-23 19:54] LABS: ABS Basophils 0.1 10^3/uL (0.0-0.1); ABS Eosinophils 0.1 10^3/uL (0.0-0.5); ABS Lymphocytes 1.6 10^3/uL (1.0-4.8); ABS Monocytes 0.7 10^3/uL (0.0-0.9); ABS Neutrophils 8.7 10^3/uL (1.5-7.6); ABS Nucleated RBC 0.01 10^3/ul; Eosinophil % 0.8 %; Hematocrit 41.4 % (35-45); Lymphocyte % 14.4 %; Mean Corpuscular Hemoglobin 30.8 pg (27-33); Mean Corpuscular Hgb Conc 33.8 g/dL (31-36); Mean Platelet Volume 7.3 fL (7.5-11.2); Nucleated Red Blood Cells % 0.1 %/100WBC (0.0-0.8); Platelet Count 314 10^3/uL (150-450); Red Blood Count 4.55 10^6/uL (3.63-4.92); Red Cell Distribution Width 13.3 % (12-17); White Blood Count 11.3 10^3/uL (3.8-11.8)
[2023-04-23 20:07] LABS: Activated Partial Thrombo Time 32.7 seconds (26.0-38.0); INR 1.03 (0.83-1.13)
[2023-04-23 20:38] LABS: Albumin 4.1 g/dL (3.2-5.2); Albumin/Globulin Ratio 1.5 (1-3); C Reactive Protein 47.61 mg/L (<8.01); Calcium 9.2 mg/dL (8.6-10.3); Creatinine, Serum 0.89 mg/dL (0.51-0.95); Globulin 2.7 g/dL (2-4); Total Bilirubin 0.3 mg/dL (0.2-1.0); Total Protein 6.8 g/dL (6.4-8.9); eGFR CKD-EPI 79.4 (>60)
[2023-04-23 21:46] LABS: High Sensitivity Troponin 1 Hr 6 pg/mL (<15)
[2023-04-23 22:21] LABS: Urine Appearance Clear; Urine Bilirubin Negative (Negative); Urine Blood Negative (Negative); Urine Color Yellow; Urine Glucose Negative (Negative); Urine Ketones Negative (Negative); Urine Nitrite Negative (Negative); Urine Protein Trace (Negative); Urine Specific Gravity 1.024 (1.002-1.030); Urine Urobilinogen Negative (Negative)
[2023-04-24] MEDS: Albuterol/Ipratropium NEB.SOL (2.5/0.5 MG) 3 ML NEB.SOLN INH ONE (01:01)
[2023-04-24] MEDS: Albuterol (2.5 MG) 0.5 % CONC 0.5 ML NEB.SOLN INH ONE (01:19)
[2023-04-24] MEDS: Iohexol 350 (CONTRAST) 500 ML MDV IV ONE (03:06)
[2023-04-24] MEDS ORDERED: Albuterol/Ipratropium NEB.SOL (2.5/0.5 MG) 3 ML NEB.SOLN INH PRN (04:37)
[2023-04-24] MEDS ORDERED: Albuterol HFA INHALER 8 gm MDI INH PRN ×2 (04:37→04:47)
[2023-04-24] MEDS: methylPREDNISolone SOD SUCC 125 mg 2 ML VIAL IV ONE (04:39)
[2023-04-24] MEDS ORDERED: Albuterol HFA INHALER 8 gm MDI INH ONE (04:42)
[2023-04-24] MEDS: Albuterol HFA INHALER 8 gm MDI INH PRN (05:08)
[2023-04-24] MEDS ORDERED: methylPREDNISolone SOD SUCC 40 mg/ml 1 ml VIAL IV SCH (06:00)
[2023-04-24 06:09] LABS: ABS Basophils 0.1 10^3/uL (0.0-0.1); ABS Eosinophils 0.1 10^3/uL (0.0-0.5); ABS Lymphocytes 1.5 10^3/uL (1.0-4.8); ABS Monocytes 0.4 10^3/uL (0.0-0.9); ABS Neutrophils 7.6 10^3/uL (1.5-7.6); ABS Nucleated RBC 0.01 10^3/ul; Hematocrit 38.2 % (35-45); Hemoglobin 13.4 g/dL (11.5-14.3); Lymphocyte % 15.9 %; Mean Corpuscular Hemoglobin 31.8 pg (27-33); Mean Corpuscular Hgb Conc 35.1 g/dL (31-36); Mean Corpuscular Volume 90.5 fL (80-97); Mean Platelet Volume 7.7 fL (7.5-11.2); Nucleated Red Blood Cells % 0.1 %/100WBC (0.0-0.8); Platelet Count 303 10^3/uL (150-450); Red Blood Count 4.22 10^6/uL (3.63-4.92); Red Cell Distribution Width 13.5 % (12-17); White Blood Count 9.7 10^3/uL (3.8-11.8)
[2023-04-24 06:38] LABS: Anion Gap 10 mmol/L (2-16); Blood Urea Nitrogen 15 mg/dL (6-24); CO2 Carbon Dioxide 24 mmol/L (22-32); Calcium 8.9 mg/dL (8.6-10.3); Chloride 103 mmol/L (101-111); Glucose 108 mg/dL (70-100); Sodium 137 mmol/L (135-145)
[2023-04-24] MEDS ORDERED: Albuterol/Ipratropium NEB.SOL (2.5/0.5 MG) 3 ML NEB.SOLN INH SCH (07:00)
[2023-04-24] MEDS: Albuterol HFA INHALER 8 gm MDI INH SCH (08:32)
[2023-04-24] MEDS: Calcium Carb (TUMS) 500 mg CHEW TAB PO SCH (08:39)
[2023-04-24] MEDS: oxyCODONE SR 15 mg TAB PO SCH (08:54)
[2023-04-24] MEDS: DULoxetine DR 30 mg CAP PO SCH (09:59)
[2023-04-24] MEDS: NS 0.9% IVPB ONE (11:30)
[2023-04-24] MEDS: CEFTRIAXONE IVPB ONE (11:30)
[2023-04-24] MEDS: Albuterol/Ipratropium NEB.SOL (2.5/0.5 MG) 3 ML NEB.SOLN INH SCH (11:34)
[2023-04-24] MEDS: PTO:BUDESONIDE/GLYCOPYR/FORMOTEROL MDI (NF) INH SCH (13:03)
[2023-04-24] MEDS: methylPREDNISolone SOD SUCC 40 mg/ml 1 ml VIAL IV SCH ×2 (13:04→20:34)
[2023-04-24] MEDS: cefTRIAXone 1 gm/50 mL D5W 1 GM/50 ML BAG IV SCH (16:08)
[2023-04-24] MEDS: Cholecalciferol (VIT D3) 1,000 unit TAB PO SCH (17:05)
[2023-04-24] MEDS: CMCS:Meloxicam 7.5 mg TAB (NF) PO SCH (17:06)
[2023-04-24] MEDS: Furosemide 20 mg/2 ml IV VIAL IV ONE (17:28)
[2023-04-24] MEDS: Enoxaparin 40 MG/0.4 ML SYR SUBCUT SCH (20:50)
[2023-04-25] MEDS: PTO:BUDESONIDE/GLYCOPYR/FORMOTEROL MDI (NF) INH SCH (00:11)
[2023-04-25] MEDS ORDERED: Albuterol/Ipratropium NEB.SOL (2.5/0.5 MG) 3 ML NEB.SOLN INH PRN ×4 (06:33→16:53)
[2023-04-25 06:43] LABS: Albumin 3.8 g/dL (3.2-5.2); Albumin/Globulin Ratio 1.4 (1-3); Calcium 8.9 mg/dL (8.6-10.3); Creatinine, Serum 0.59 mg/dL (0.51-0.95); Globulin 2.7 g/dL (2-4); Potassium 4.3 mmol/L (3.5-5.0); Total Bilirubin 0.2 mg/dL (0.2-1.0); Total Protein 6.5 g/dL (6.4-8.9); eGFR CKD-EPI 110.4 (>60)
[2023-04-25] MEDS: Albuterol HFA INHALER 8 gm MDI INH SCH ×3 (07:26→19:40)
[2023-04-25] MEDS ORDERED: Albuterol HFA INHALER 8 gm MDI INH PRN ×3 (07:31→16:36)
[2023-04-25] MEDS: Albuterol/Ipratropium NEB.SOL (2.5/0.5 MG) 3 ML NEB.SOLN INH SCH (10:48)
[2023-04-25] MEDS ORDERED: NS 0.9% 500 ml BAG 500 ML IV ONE (11:33)
[2023-04-25] MEDS: Polyethylene Glycol 3350 17 GM PACKET PO SCH (11:42)
[2023-04-25] MEDS: Saline NASAL SPRAY 0.65% BTL BOTH NARES SCH (12:51)
[2023-04-25] MEDS ORDERED: Albuterol/Ipratropium NEB.SOL (2.5/0.5 MG) 3 ML NEB.SOLN INH SCH ×3 (17:00→19:00)
[2023-04-25] MEDS ORDERED: Albuterol HFA INHALER 8 gm MDI INH SCH (19:00)
[2023-04-26] MEDS: Albuterol/Ipratropium NEB.SOL (2.5/0.5 MG) 3 ML NEB.SOLN INH SCH (08:15)
[2023-04-26] MEDS: Influenza vaccine *QUAD* *2023-24* 0.5 ML SYRINGE IM ONE (12:53)
[2023-04-26] MEDS: COVID VAC 23-24(12+)(Moderna) SYR 0.5 ML IM ONE (12:57)
[2023-04-26] MEDS ORDERED: Albuterol/Ipratropium NEB.SOL (2.5/0.5 MG) 3 ML NEB.SOLN INH PRN (13:34)
[2023-04-26] MEDS: Albuterol HFA INHALER 8 gm MDI INH PRN (21:38)
[2023-04-26] MEDS: Calcium Carb (TUMS) 500 mg CHEW TAB PO ONE (21:39)
[2023-04-27 13:55] VITALS: BP 137/79
== END 2023-04-27 14:57 | disposition home or self-care (01) | DRG 193 ==
LOC: ED 19:11 → EDHOLD 19:11 → SUATTDRO 04-24 03:10 → MEDTELE 04-24 17:56
PROVIDERS: ADMIT Student in an Organized Health Care Education/Training Program; ATTEND Internal Medicine

== ENCOUNTER 2023-09-13 21:56 | Inpatient (IN) ==
[2023-09-14] MEDS: Albuterol/Ipratropium NEB.SOL (2.5/0.5 MG) 3 ML NEB.SOLN INH ONE ×3 (00:25→04:35)
[2023-09-14] MEDS: methylPREDNISolone SOD SUCC 125 mg 2 ML VIAL IV ONE (00:29)
[2023-09-14 00:53] LABS: ABS Basophils 0.1 10^3/uL (0.0-0.1); ABS Eosinophils 0.1 10^3/uL (0.0-0.5); ABS Lymphocytes 1.5 10^3/uL (1.0-4.8); ABS Monocytes 0.8 10^3/uL (0.0-0.9); Eosinophil % 0.9 %; Hematocrit 38.8 % (35-45); Hemoglobin 13.5 g/dL (11.5-14.3); Lymphocyte % 15.8 %; Mean Corpuscular Hemoglobin 31.4 pg (27-33); Mean Corpuscular Hgb Conc 34.8 g/dL (31-36); Mean Corpuscular Volume 90.3 fL (80-97); Mean Platelet Volume 7.5 fL (7.5-11.2); Platelet Count 314 10^3/uL (150-450); Red Cell Distribution Width 13.5 % (12-17); White Blood Count 9.6 10^3/uL (3.8-11.8)
[2023-09-14 01:27] LABS: Albumin 4.3 g/dL (3.2-5.2); Albumin/Globulin Ratio 1.7 (1-3); Calcium 9.3 mg/dL (8.6-10.3); Creatinine, Serum 0.97 mg/dL (0.51-0.95); Globulin 2.6 g/dL (2-4); Potassium 3.5 mmol/L (3.5-5.0); Total Bilirubin 0.3 mg/dL (0.2-1.0); Total Protein 6.9 g/dL (6.4-8.9); eGFR CKD-EPI 71.6 (>60)
[2023-09-14] MEDS: Magnesium Sulfate 2 gm BAG 2 GM/50 ML BAG IVPB ONE (02:00)
[2023-09-14] MEDS: Iohexol 350 (CONTRAST) 500 ML MDV IV ONE (03:00)
[2023-09-14] MEDS: Albuterol 2.5mg/3 ml (0.083%) NEB.SOLN INH ONE (03:29)
[2023-09-14 05:55] LABS: High Sensitivity Troponin 1 Hr 7 pg/mL (<15)
[2023-09-14] MEDS ORDERED: Albuterol (2.5 MG) 0.5 % CONC 0.5 ML NEB.SOLN INH SCH (07:00)
[2023-09-14 07:13] LABS: PCO2 Arterial 41 mmHg (35-45); PO2 Arterial 77 mmHg (80-100)
[2023-09-14] MEDS: Lactated Ringers 1000 ml BAG 1,000 ML IV ONE (08:00)
[2023-09-14] MEDS: Albuterol/Ipratropium NEB.SOL (2.5/0.5 MG) 3 ML NEB.SOLN INH SCH (08:33)
[2023-09-14] MEDS ORDERED: Azithromycin 500 mg/250 ml NS 500 MG/250 ML BAG IVPB SCH (09:00)
[2023-09-14] MEDS: PTO:BUDESONIDE/GLYCOPYR/FORMOTEROL MDI (NF) INH SCH (09:00)
[2023-09-14] MEDS: cefTRIAXone 1 gm/50 mL D5W 1 GM/50 ML BAG IV SCH (09:39)
[2023-09-14] MEDS: methylPREDNISolone SOD SUCC 40 mg/ml 1 ml VIAL IV SCH (09:39)
[2023-09-14] MEDS: oxyCODONE/Acetamin 5/325 mg TAB PO SCH (10:36)
[2023-09-14] MEDS: oxyCODONE/Acetamin 5/325 mg TAB PO PRN (11:48)
[2023-09-14] MEDS: NS 0.9% 1000 ml BAG 1,000 ML IV SCH (11:52)
[2023-09-14] MEDS: DULoxetine DR 30 mg CAP PO SCH (12:25)
[2023-09-14] MEDS: oxyCODONE SR 15 mg TAB PO SCH (12:26)
[2023-09-14] MEDS: Enoxaparin 40 MG/0.4 ML SYR SUBCUT SCH (21:00)
[2023-09-14] MEDS: Albuterol/Ipratropium NEB.SOL (2.5/0.5 MG) 3 ML NEB.SOLN INH PRN (22:22)
[2023-09-14] MEDS: Azithromycin 500 mg/250 ml NS 500 MG/250 ML BAG IVPB SCH ×2 (23:09→23:20)
[2023-09-15] MEDS ORDERED: Saline NASAL SPRAY 0.65% BTL BOTH NARES PRN (05:14)
[2023-09-15] MEDS: cefTRIAXone 1 gm/50 mL D5W 1 GM/50 ML BAG IV SCH (10:37)
[2023-09-15] MEDS: PTO:BUDESONIDE/GLYCOPYR/FORMOTEROL MDI (NF) INH SCH (19:36)
[2023-09-15] MEDS: Saline NASAL SPRAY 0.65% BTL BOTH NARES PRN (22:40)
[2023-09-16] MEDS ORDERED: Lorazepam PYXIS KEY PRN ×2 (13:16→15:54)
[2023-09-16] MEDS: LORazepam 2 mg VIAL 1 ml IV PUSH ONE (13:28)
[2023-09-16] MEDS: Morphine 2 MG/ML SYRINGE ONE (14:24)
[2023-09-16] MEDS: Albuterol/Ipratropium NEB.SOL (2.5/0.5 MG) 3 ML NEB.SOLN INH SCH (16:00)
[2023-09-16] MEDS: LORazepam 2 mg VIAL 1 ml IV PUSH PRN (18:58)
[2023-09-16] MEDS: Morphine 2 MG/ML SYRINGE IV PRN (20:09)
[2023-09-16] MEDS: methylPREDNISolone SOD SUCC 40 mg/ml 1 ml VIAL IV SCH (20:12)
[2023-09-17 04:23] LABS: Hematocrit 39.3 % (35-45); Hemoglobin 13.2 g/dL (11.5-14.3); Mean Corpuscular Hemoglobin 30.8 pg (27-33); Mean Corpuscular Hgb Conc 33.6 g/dL (31-36); Mean Corpuscular Volume 91.7 fL (80-97); Mean Platelet Volume 7.8 fL (7.5-11.2); Platelet Count 347 10^3/uL (150-450); Red Blood Count 4.29 10^6/uL (3.63-4.92); White Blood Count 15.8 10^3/uL (3.8-11.8)
[2023-09-17 04:46] LABS: Albumin 4.1 g/dL (3.2-5.2); Albumin/Globulin Ratio 1.5 (1-3); Calcium 9.4 mg/dL (8.6-10.3); Creatinine, Serum 0.72 mg/dL (0.51-0.95); Globulin 2.7 g/dL (2-4); Magnesium 2.5 mg/dL (1.9-2.7); Potassium 4.6 mmol/L (3.5-5.0); Total Bilirubin 0.3 mg/dL (0.2-1.0); Total Protein 6.8 g/dL (6.4-8.9); eGFR CKD-EPI 102.4 (>60)
[2023-09-17 06:02] LABS: ABS Basophils 0.1 10^3/uL (0.0-0.1); ABS Lymphocytes 1.6 10^3/uL (1.0-4.8); ABS Monocytes 0.8 10^3/uL (0.0-0.9); ABS Neutrophils 13.3 10^3/uL (1.5-7.6); ABS Nucleated RBC 0.01 10^3/ul; Lymphocyte % 10.3 %
[2023-09-17] MEDS: methylPREDNISolone SOD SUCC 40 mg/ml 1 ml VIAL IV SCH (09:28)
[2023-09-17] MEDS: Sulfur Hexaflouride MICROSPHR 25 MG VIAL IV ONE (09:32)
[2023-09-18 10:08] LABS: Hematocrit 39.2 % (35-45); Hemoglobin 13.3 g/dL (11.5-14.3); Mean Corpuscular Hemoglobin 30.8 pg (27-33); Mean Corpuscular Hgb Conc 33.9 g/dL (31-36); Mean Corpuscular Volume 90.9 fL (80-97); Mean Platelet Volume 7.6 fL (7.5-11.2); Platelet Count 355 10^3/uL (150-450); Red Blood Count 4.31 10^6/uL (3.63-4.92); Red Cell Distribution Width 13.7 % (12-17); White Blood Count 15.6 10^3/uL (3.8-11.8)
[2023-09-18 10:09] LABS: ABS Basophils 0.1 10^3/uL (0.0-0.1); ABS Eosinophils 0.1 10^3/uL (0.0-0.5); ABS Lymphocytes 3.9 10^3/uL (1.0-4.8); ABS Neutrophils 10.5 10^3/uL (1.5-7.6); ABS Nucleated RBC 0.03 10^3/ul; Eosinophil % 0.6 %; Lymphocyte % 25.3 %
[2023-09-18 10:10] LABS: Calcium 9.2 mg/dL (8.6-10.3); Creatinine, Serum 0.84 mg/dL (0.51-0.95); Nucleated Red Blood Cells % 0.2 %/100WBC (0.0-0.8); Potassium 4.5 mmol/L (3.5-5.0); eGFR CKD-EPI 85.1 (>60)
[2023-09-18] MEDS: Morphine ORAL CONCENTRATE 5 MG/0.25 ML ORAL.SYRIN SL PRN (14:21)
[2023-09-19 07:19] LABS: Hematocrit 39.1 % (35-45); Hemoglobin 13.3 g/dL (11.5-14.3); Mean Corpuscular Hemoglobin 30.7 pg (27-33); Mean Corpuscular Hgb Conc 34.1 g/dL (31-36); Mean Corpuscular Volume 90.1 fL (80-97); Mean Platelet Volume 7.5 fL (7.5-11.2); Platelet Count 334 10^3/uL (150-450); Red Blood Count 4.34 10^6/uL (3.63-4.92); Red Cell Distribution Width 13.5 % (12-17); White Blood Count 13.9 10^3/uL (3.8-11.8)
[2023-09-19 08:10] LABS: ABS Eosinophils 0.4 10^3/uL (0.0-0.5); ABS Lymphocytes 3.3 10^3/uL (1.0-4.8); ABS Monocytes 0.8 10^3/uL (0.0-0.9); ABS Neutrophils 9.3 10^3/uL (1.5-7.6); ABS Nucleated RBC 0.01 10^3/ul; Eosinophil % 2.7 %; Lymphocyte % 23.7 %; Nucleated Red Blood Cells % 0.1 %/100WBC (0.0-0.8)
[2023-09-19 09:38] LABS: Albumin 3.7 g/dL (3.2-5.2); Albumin/Globulin Ratio 1.3 (1-3); Calcium 9.3 mg/dL (8.6-10.3); Creatinine, Serum 0.76 mg/dL (0.51-0.95); Globulin 2.8 g/dL (2-4); Magnesium 2.2 mg/dL (1.9-2.7); Potassium 4.5 mmol/L (3.5-5.0); Total Bilirubin 0.3 mg/dL (0.2-1.0); Total Protein 6.5 g/dL (6.4-8.9)
[2023-09-20 06:39] LABS: ABS Basophils 0.2 10^3/uL (0.0-0.1); ABS Eosinophils 0.8 10^3/uL (0.0-0.5); ABS Lymphocytes 3.8 10^3/uL (1.0-4.8); ABS Monocytes 0.7 10^3/uL (0.0-0.9); ABS Neutrophils 10.5 10^3/uL (1.5-7.6); Eosinophil % 4.8 %; Hematocrit 41.2 % (35-45); Hemoglobin 13.8 g/dL (11.5-14.3); Mean Corpuscular Hemoglobin 30.2 pg (27-33); Mean Corpuscular Hgb Conc 33.5 g/dL (31-36); Mean Platelet Volume 7.8 fL (7.5-11.2); Platelet Count 382 10^3/uL (150-450); Red Blood Count 4.57 10^6/uL (3.63-4.92); Red Cell Distribution Width 13.6 % (12-17)
[2023-09-20 07:10] LABS: Albumin 3.9 g/dL (3.2-5.2); Albumin/Globulin Ratio 1.4 (1-3); Calcium 9.6 mg/dL (8.6-10.3); Creatinine, Serum 0.78 mg/dL (0.51-0.95); Globulin 2.7 g/dL (2-4); Potassium 4.3 mmol/L (3.5-5.0); Total Bilirubin 0.3 mg/dL (0.2-1.0); Total Protein 6.6 g/dL (6.4-8.9); eGFR CKD-EPI 93.1 (>60)
[2023-09-20] MEDS: PTO:BUDESONIDE/GLYCOPYR/FORMOTEROL MDI (NF) INH SCH (07:25)
[2023-09-20 10:16] VITALS: BP 139/100
== END 2023-09-20 12:50 | disposition home or self-care (01) | DRG 190 ==
LOC: ED 21:56 → EDHOLD 21:56 → MEDTELE 09-14 05:36 → ICU 09-16 14:08 → MED 09-18 12:04
PROVIDERS: ADMIT Hospitalist; ATTEND Internal Medicine Hematology & Oncology

== ENCOUNTER 2024-03-03 13:07 | Inpatient (IN) ==
[2024-03-03 15:19] LABS: ABS Basophils 0.1 10^3/uL (0.0-0.1); ABS Eosinophils 0.5 10^3/uL (0.0-0.5); ABS Lymphocytes 1.5 10^3/uL (1.0-4.8); ABS Monocytes 0.8 10^3/uL (0.0-0.9); ABS Neutrophils 11.4 10^3/uL (1.5-7.6); ABS Nucleated RBC 0.01 10^3/ul; Eosinophil % 3.5 %; Hematocrit 37.2 % (35-45); Hemoglobin 12.8 g/dL (11.5-14.3); Lymphocyte % 10.2 %; Mean Corpuscular Hemoglobin 30.9 pg (27-33); Mean Corpuscular Hgb Conc 34.5 g/dL (31-36); Mean Corpuscular Volume 89.4 fL (80-97); Mean Platelet Volume 7.5 fL (7.5-11.2); Nucleated Red Blood Cells % 0.1 %/100WBC (0.0-0.8); Platelet Count 318 10^3/uL (150-450); Red Blood Count 4.16 10^6/uL (3.63-4.92); Red Cell Distribution Width 14.1 % (12-17); White Blood Count 14.3 10^3/uL (3.8-11.8)
[2024-03-03 15:38] LABS: Albumin 3.7 g/dL (3.5-5.7); Albumin/Globulin Ratio 1.4 (1-3); C Reactive Protein 205.16 mg/L (<8.01); Calcium 9.2 mg/dL (8.6-10.3); Creatinine, Serum 0.91 mg/dL (0.51-0.95); Globulin 2.7 g/dL (2-4); Potassium 3.6 mmol/L (3.5-5.0); Total Bilirubin 0.5 mg/dL (0.2-1.0); Total Protein 6.4 g/dL (6.4-8.9); eGFR CKD-EPI 76.9 (>60)
[2024-03-03] MEDS: Iohexol 350 (CONTRAST) 500 ML MDV IV ONE (16:05)
[2024-03-03] MEDS: Iodixanol 320 (CONTRAST) 100 ML SDV IV ONE (16:10)
[2024-03-03] MEDS: Aztreonam 2 GM in NS 0.9% 50 ML 50 ML IVPB ONE (16:52)
[2024-03-03] MEDS: cefTRIAXone 2 gm/50 mL D5W 2 GM/50 ML BAG IV ONE (16:55)
[2024-03-03] MEDS: Azithromycin 500 mg/250 ml NS 500 MG/250 ML BAG IVPB ONE (17:48)
[2024-03-03] MEDS: Lactated Ringers 1000 ml BAG 1,000 ML IV ONE (17:48)
[2024-03-03] MEDS ORDERED: Senna TAB 8.6 mg TAB PO PRN (18:06)
[2024-03-03] MEDS ORDERED: Albuterol HFA INHALER 8 gm MDI INH PRN (18:08)
[2024-03-03] MEDS: oxyCODONE SR 15 mg TAB PO SCH (21:40)
[2024-03-03] MEDS: DULoxetine DR 30 mg CAP PO SCH (21:40)
[2024-03-03] MEDS: Enoxaparin 40 MG/0.4 ML SYR SUBCUT SCH (21:40)
[2024-03-04] MEDS: PTO: BUDESONIDE/GLYCOPYR/FORMOTEROL MDI (NF) INH SCH (00:19)
[2024-03-04] MEDS: oxyCODONE/Acetamin 5/325 mg TAB PO PRN (00:50)
[2024-03-04] MEDS: methylPREDNISolone SOD SUCC 40 mg/ml 1 ml VIAL IV ONE (01:27)
[2024-03-04 06:22] LABS: ABS Eosinophils 0.2 10^3/uL (0.0-0.5); ABS Monocytes 0.3 10^3/uL (0.0-0.9); ABS Neutrophils 13.7 10^3/uL (1.5-7.6); Eosinophil % 1.5 %; Hematocrit 38.6 % (35-45); Lymphocyte % 6.6 %; Mean Corpuscular Hemoglobin 30.4 pg (27-33); Mean Corpuscular Hgb Conc 33.8 g/dL (31-36); Mean Corpuscular Volume 89.9 fL (80-97); Mean Platelet Volume 7.6 fL (7.5-11.2); Platelet Count 324 10^3/uL (150-450); Red Cell Distribution Width 14.5 % (12-17); White Blood Count 15.2 10^3/uL (3.8-11.8)
[2024-03-04 06:55] LABS: Calcium 8.7 mg/dL (8.6-10.3); Creatinine, Serum 0.79 mg/dL (0.51-0.95); Magnesium 1.8 mg/dL (1.9-2.7); Potassium 4.2 mmol/L (3.5-5.0); eGFR CKD-EPI 91.1 (>60)
[2024-03-04] MEDS: Amoxicillin/Clavul 875/125 TAB (Augmentin 875 tab) PO SCH (09:26)
[2024-03-04] MEDS: Magnesium Sulfate IV 1GM/100ML 1 GM/100 ML BAG IV ONE (09:29)
[2024-03-04] MEDS ORDERED: cefTRIAXone 1 gm/50 mL D5W 1 GM/50 ML BAG IV SCH (17:00)
[2024-03-04] MEDS: Azithromycin 500 mg/250 ml NS 500 MG/250 ML BAG IVPB SCH (17:53)
[2024-03-05 06:40] LABS: Hematocrit 35.2 % (35-45); Mean Corpuscular Hemoglobin 30.5 pg (27-33); Mean Corpuscular Hgb Conc 34.1 g/dL (31-36); Mean Corpuscular Volume 89.5 fL (80-97); Mean Platelet Volume 7.7 fL (7.5-11.2); Platelet Count 377 10^3/uL (150-450); Red Blood Count 3.94 10^6/uL (3.63-4.92); Red Cell Distribution Width 13.9 % (12-17); White Blood Count 15.8 10^3/uL (3.8-11.8)
[2024-03-05 06:57] LABS: Creatinine, Serum 0.73 mg/dL (0.51-0.95); Magnesium 1.9 mg/dL (1.9-2.7); Potassium 3.7 mmol/L (3.5-5.0); eGFR CKD-EPI 100.1 (>60)
[2024-03-05 09:08] LABS: ABS Eosinophils 0.2 10^3/uL (0.0-0.5); ABS Lymphocytes 2.3 10^3/uL (1.0-4.8); ABS Monocytes 0.7 10^3/uL (0.0-0.9); ABS Neutrophils 12.6 10^3/uL (1.5-7.6); ABS Nucleated RBC 0.01 10^3/ul; Eosinophil % 1.4 %; Lymphocyte % 14.7 %; Nucleated Red Blood Cells % 0.1 %/100WBC (0.0-0.8)
[2024-03-05 17:23] VITALS: BP 127/78
== END 2024-03-05 18:40 | disposition home or self-care (01) | DRG 871 ==
LOC: EDHOLD 13:07 → ED 13:07 → MED 21:10
PROVIDERS: ADMIT Hospitalist; ATTEND Hospitalist